=== PATIENT | male | born 1965 | race African-American/Black ===

== ENCOUNTER 2019-09-27 15:17 | Inpatient (IN) | payer MEDICAID, SELFPAY ==
[~2019-09-27] VITALS: Ht 170.2 cm; Wt 114.3 kg
--- NOTE | 2019-09-27 15:21 | NUR ---
PT PLACED IN BED 11 BY EMS.
[2019-09-27 15:57] VITALS: BP 113/77
--- NOTE | 2019-09-27 15:57 | NUR ---
54 Y/O M BETH FROM [facility] [place]. PER FACILITY PT SENT TO ER DUE TO SEIZURE ACTIVITY. PER EMS 5 OF [place] GIVEN IN THE FIELD. GLUCOGON GIVEN DUE TO LOW BS OF 53 IN FIELD. ON ARRIVAL PT RESPONSIVE TO PAINFUL STIMULI. BS 126. VSS. PT PLACED IN BED WITH SZ PRECAUTIONS. ALLERGIES,HX,RX -- SEE CHART.
[2019-09-27 16:33] LABS: BASOPHILS % (AUTO) 0.4 % (0.0-2.0); EOSINOPHILS # (AUTO) 0.1 K/uL (0-0.4); EOSINOPHILS % (AUTO) 2.7 % (0.0-4.0); HEMATOCRIT 37.2 % (36-52); HEMOGLOBIN 11.9 g/dL (12.0-18.0); LYMPHOCYTES # (AUTO) 1.1 K/uL (2.0-11.5); LYMPHOCYTES % (AUTO) 44.4 % (20.5-51.1); MEAN CORPUSCULAR HEMOGLOBIN 31 pg (27-31); MEAN CORPUSCULAR HGB CONC 32 g/dL (33-37); MEAN CORPUSCULAR VOLUME 97.7 fL (80-94); MONOCYTES # (AUTO) 0.1 K/uL (0.8-1.0); MONOCYTES % (AUTO) 4.7 % (1.7-9.3); NEUTROPHILS # (AUTO) 1.2 K/uL (1.8-7.7); NEUTROPHILS % (AUTO) 47.8 % (42.2-75.2); PLATELET COUNT (AUTO) 105 K/uL (140-450); RED BLOOD CELL COUNT(AUTO) 3.81 MIL/uL (4.20-6.10); RED CELL DISTRIBUTION WIDTH 19.3 % (11.6-13.7); WHITE BLOOD COUNT (AUTO) 2.4 K/uL (4.8-10.8)
[2019-09-27] MEDS ORDERED: LACT1CAP8 GT (16:45)
[2019-09-27] MEDS ORDERED: NUTR887L9 GT (16:45)
[2019-09-27] MEDS ORDERED: ATRN INH (16:45)
[2019-09-27] MEDS ORDERED: DOCU-299 GT (16:45)
[2019-09-27] MEDS ORDERED: ASCO500T95 GT (16:45)
[2019-09-27] MEDS ORDERED: ESOM40EC TD (16:45)
[2019-09-27] MEDS ORDERED: FLOV250 INH (16:45)
[2019-09-27] MEDS ORDERED: ATI2I IM (16:45)
[2019-09-27] MEDS ORDERED: LAM200 GT (16:45)
[2019-09-27] MEDS ORDERED: ACET-2619 GT (16:45)
[2019-09-27] MEDS ORDERED: FER300L GT (16:45)
[2019-09-27] MEDS ORDERED: PRON INH (16:45)
[2019-09-27] MEDS ORDERED: CALC1TAB GT (16:45)
[2019-09-27] MEDS ORDERED: [UNRECOGNIZED DRUG - CODE] OP (16:46)
[2019-09-27 16:48] LABS: APPEARANCE,URINE CLEAR (CLEAR); BILIRUBIN,URINE NEGATIVE (NEGATIVE); BLOOD, URINE NEGATIVE (NEGATIVE); COLOR,URINE YELLOW (YELLOW); LEUKOCYTE ESTERASE ,URINE NEGATIVE (NEGATIVE); NITRITE, URINE NEGATIVE (NEGATIVE); UGLUCOSE NEGATIVE (NEGATIVE)
--- NOTE | 2019-09-27 16:53 | NUR ---
PT RESTING IN BED, SIDE RAIL X2. SZ PRECAUTIONS IN PLACE.
[2019-09-27 17:01] LABS: ALBUMIN 2.5 g/dL (3.4-5.0); ANION GAP 8.9 (8-16); CARBON DIOXIDE 31.8 mmol/L (21-32); CREATININE 1.1 mg/dL (0.6-1.3); POTASSIUM 3.7 mmol/L (3.5-5.1); PROTHROMBIN TIME 9.5 secs (10.8-13.4); TOTAL BILIRUBIN 0.2 mg/dL (0.0-1.0)
[2019-09-27 17:16] LABS: C-REACTIVE PROTEIN QUANT 2.6 mg/dL (0.0-0.9)
[2019-09-27 17:18] LABS: LACTATE DEHYDROGENASE 128 U/L (85-227)
--- NOTE | 2019-09-27 17:21 | NUR ---
COVID / FLU / RSV COMPLETED AND GIVEN TO LAB
[2019-09-27] MEDS ORDERED: AZITHROMYCIN 500 MG in DEXTROSE 5% 250 ML IV ONE (17:45)
[2019-09-27 18:06] LABS: RSV NEGATIVE (NEGATIVE)
[2019-09-27] MEDS ORDERED: AZITHROMYCIN 500 MG INJ VIAL IV ONE (18:21)
--- NOTE | 2019-09-27 18:31 | NUR ---
PT RESTING IN BED, SZ PRECAUTIONS IN PLACE. SIDE RAIL X2.
[2019-09-27] MEDS ORDERED: DOCUSATE SODIUM 100 MG GELCAP PO PRN (18:55)
[2019-09-27] MEDS ORDERED: ONDANSETRON 4 MG/2 ML VIAL IM/IVP PRN (18:55)
[2019-09-27] MEDS ORDERED: HYDROcodone/APAP 5/325 MG 1 TAB TAB PO PRN (18:55)
[2019-09-27] MEDS ORDERED: ACETAMINOPHEN 325 MG TAB PO PRN (18:55)
--- NOTE | 2019-09-27 19:11 | NUR ---
REPORT GIVEN TO MP FOREMAN FOR CONTINUITY OF CARE
--- NOTE | 2019-09-27 19:15 | NUR ---
recvied report from pilar levine. will cont care at this time.
[2019-09-27] MEDS ORDERED: LORazepam 2 MG/ML VIAL IVP PRN (19:30)
[2019-09-27] MEDS ORDERED: GLUCAGON 1 MG VIAL IVP PRN (19:40)
[2019-09-27] MEDS ORDERED: INSULIN LISPRO SLIDING SCALE 100 UNITS/ML VIAL SUBQ PRN (19:40)
[2019-09-27] MEDS: ASCORBIC ACID 500 MG TAB GT SCH (19:40)
[2019-09-27] MEDS: ZINC SULF 220 MG CAP GT SCH (19:40)
[2019-09-27] MEDS ORDERED: DEXTROSE 50% 50 ML SYR IVP PRN (19:40)
[2019-09-27] MEDS ORDERED: PHENobarbital 65 MG/ML VIAL IV SCH (19:45)
[2019-09-27] MEDS ORDERED: PHENobarbital 65 MG/ML VIAL IV PRN ×2 (19:45→23:12)
[2019-09-27 19:53] LABS: CHOL/HDL RATIO 6.6 (1-4.5); FREE T4 (FREE THYROXINE) 0.95 ng/dL (0.76-1.46)
--- NOTE | 2019-09-27 19:59 | NUR ---
GAVE FAMILY UPDATE ON PT. SPOKE TO ANNA (PARENTS): HOME PHONE # [phone]. CELL # [phone] (CHIO)
[2019-09-27 20:04] LABS: BARBITURATE, URINE NEGATIVE ng/ml (NEG <=200); BENZODIAZEPINE, URINE POSITIVE ng/mL (NEG <=200); CANNABINOID, URINE NEGATIVE ng/mL (NEG <=50); COCAINE, URINE NEGATIVE ng/mL (NEG <=300); OPIATE, URINE NEGATIVE ng/mL (NEG <=2000); PHENCYCLIDINE SCREEN,URINE NEGATIVE ng/mL (NEG <=25)
[2019-09-27 20:18] LABS: THYROID STIMULATING HORMONE 0.98 uIU/mL (0.34-3.74)
[2019-09-27] MEDS: BLOOD GLUCOSE MONITORING 1 DEV DEV FS SCH (21:00)
--- NOTE | 2019-09-27 22:00 | NUR ---
PT IS SLEEPING COMFROTABLY. NO DISTRESS NOTED. VSS.
--- NOTE | 2019-09-27 23:50 | NUR ---
Patient will be admitted to care of DR. BLOUNT. Admited to TELE. Will go to room 119A. Belongings list completed. Report to KELLEN KABA.
--- NOTE | 2019-09-28 | NUR ---
PT ARRIVED VIA GURNEY AND WAS TRANSFERRED TO 119 BED A. PT IS AOX1 PUPILS VERY SLUGGISH PT RESPONDS TO NAME, LIGHT SHAKING AND LIGHT PAIN. HE IS APHASAIC. PT IS BEDBOUND AND TOTAL CARE DUE TO SPINAL INJURY ACCORDING TO MOTHER. ALL ORDERED PRECAUTIONS IN PLACE.
--- NOTE | 2019-09-28 00:30 | NUR ---
PT WAS TURNED, CHANGED AND REPOSITIONED, SKIN INTACT V/S FOLLOWS: T 97.0 P 64 R 18 B/P 126/76 02 100% OF 10 LITERS REBREATHER MASK.
[2019-09-28] MEDS: DEXAMETHASONE 10 MG/ML VIAL IVP SCH (01:32)
[2019-09-28] MEDS: ENOXAPARIN 40 MG/0.4 ML SYR SUBQ SCH ×2 (01:46→21:26)
--- NOTE | 2019-09-28 02:45 | NUR ---
PT SEEN AND ASSESSED. PLACED PT ON 6L OXYMIZER WITH SPO2 OF 98%. PT IS IN NO APPARENT RESPIRATORY DISTRESS AT THIS TIME.
--- NOTE | 2019-09-28 04:00 | NUR ---
PT WAS TURNED, CHANGED AND REPOSITIONED IN BED. PT REMAINS ON 6 LITERS OXYMIZER NO S/S OF PAIN OR DISTRESS NOTED. ALL ORDERED PRECAUTIONS IN PLACE.
--- NOTE | 2019-09-28 06:00 | NUR ---
FINGERSTICK IS 78 NO HUMALOG COVERAGE NEEDED.
[2019-09-28 07:05] LABS: BASOPHILS % (AUTO) 0.5 % (0.0-2.0); EOSINOPHILS % (AUTO) 0.3 % (0.0-4.0); HEMATOCRIT 39.2 % (36-52); HEMOGLOBIN 12.8 g/dL (12.0-18.0); LYMPHOCYTES # (AUTO) 1.3 K/uL (2.0-11.5); LYMPHOCYTES % (AUTO) 24.2 % (20.5-51.1); MEAN CORPUSCULAR HEMOGLOBIN 32 pg (27-31); MEAN CORPUSCULAR HGB CONC 33 g/dL (33-37); MEAN CORPUSCULAR VOLUME 98.2 fL (80-94); MONOCYTES # (AUTO) 0.1 K/uL (0.8-1.0); MONOCYTES % (AUTO) 2.1 % (1.7-9.3); NEUTROPHILS # (AUTO) 3.8 K/uL (1.8-7.7); NEUTROPHILS % (AUTO) 72.9 % (42.2-75.2); PLATELET COUNT (AUTO) 117 K/uL (140-450); RED BLOOD CELL COUNT(AUTO) 3.99 MIL/uL (4.20-6.10); RED CELL DISTRIBUTION WIDTH 19.1 % (11.6-13.7); WHITE BLOOD COUNT (AUTO) 5.2 K/uL (4.8-10.8)
[2019-09-28] MEDS: BLOOD GLUCOSE MONITORING 1 DEV DEV FS SCH ×4 (07:30→21:50)
[2019-09-28] MEDS ORDERED: PHENobarbital 130 MG/ML VIAL IV PRN (07:32)
[2019-09-28 07:51] LABS: ALBUMIN 2.7 g/dL (3.4-5.0); ANION GAP 11.7 (8-16); CARBON DIOXIDE 30.3 mmol/L (21-32); MAGNESIUM 2.1 mg/dL (1.8-2.4); TOTAL BILIRUBIN 0.3 mg/dL (0.0-1.0)
[2019-09-28 08:00] VITALS: BP 128/78
--- NOTE | 2019-09-28 08:35 | NUR ---
DR BLOUNT AND MEDICAL TEAM AT BEDSIDE, NOTIFIED OF BLOOD SUGAR 95 NOW, AND HYPOGLUCEMIA LAST NIGHT PER REPORT, NO ORDER FOR IVF AND PT IS NPO, DR HERNADEZ TO REVIEW ORDERS.
--- NOTE | 2019-09-28 08:50 | NUR ---
ALL GT MEDS ON HOLD PER ORDER, AWAITING GI CONSULT, DR HERNADEZ NOTIFIED THAT PT'S FEEDING ON HOLD, NO IVF ORDERED, AND LOW BLOOD SUGAR REPORTED FROM STONE SETTER. DR HERNADEZ TO REVIEW ORDERS.
[2019-09-28] MEDS: PANTOPRAZOLE 40 MG INJ VIAL IVP SCH (08:53)
[2019-09-28] MEDS: ZINC SULF 220 MG CAP GT SCH (08:54)
[2019-09-28] MEDS: ASCORBIC ACID 500 MG TAB GT SCH (08:54)
[2019-09-28] MEDS ORDERED: ALBUTEROL SULFATE/IPRATROPIU 3 ML SOL IH PRN (09:15)
[2019-09-28] MEDS ORDERED: ALBUTEROL HFA MDI 90 MCG/ACTUATION 8 GM INH PRN (09:15)
[2019-09-28] MEDS ORDERED: GLYCERIN OP SCH (09:20)
[2019-09-28] MEDS ORDERED: HYPROMELLOSE OP SCH (09:20)
[2019-09-28] MEDS ORDERED: PEG OP SCH (09:20)
--- NOTE | 2019-09-28 09:27 | NUR ---
PATIENT HAS BEEN SCREENED AND CATEGORIZED HIGH NUTRITION RISK. PATIENT WILL BE SEEN WITHIN 1-2 DAYS OF ADMISSION. 09/28/19-09/29/[address]
[2019-09-28] MEDS ORDERED: POLYVINYL ALCOHOL 1.4% OP 15 ML SOL OP PRN (09:30)
--- NOTE | 2019-09-28 10:03 | NUR ---
BEDBATH PRRICARE DONE WITH JULIO CAMERON
--- NOTE | 2019-09-28 11:30 | NUR ---
DR SULTANA AT BEDSIDE, GT FLUSHED, CLEANED WITH BRUSH, FLUSHES WITH EASE NOW, OK TO USE PER DR SULTANA.
[2019-09-28 12:00] VITALS: BP 138/70
[2019-09-28] MEDS ORDERED: ALBUTEROL HFA MDI 90 MCG/ACTUATION 8 GM INH SCH (12:00)
[2019-09-28] MEDS ORDERED: CRUSHER, PILL MC ONE (12:29)
[2019-09-28] MEDS ORDERED: NON-FORMULARY ITEM (Amino Acids/Protein Hydrolys (Pro-Stat Sugar Free Liquid) 30 ML) GT SCH (13:00)
--- NOTE | 2019-09-28 13:01 | NUR ---
PT'S MOTHER CHIO CALLED TO UPDATE HER THAT GT NOW IS WORKING AND OK TO USE PER DR SULTANA.
--- NOTE | 2019-09-28 14:39 | NUR ---
09/28/19 RD INITIAL ASSESSMENT COMPLETED PLEASE REFER TO NUTRITION ASSESSMENT UNDER CARE ACTIVITY FOR ESTIMATED NUTRITIONAL NEEDS. 1. RECOMMEND JEVITY 1.2 @ 70 ML/HR X 24 HR -THIS WILL PROVIDE 2016 CALORIES AND 93 GRAMS OF PROTEIN WHICH MEETS 100% OF ESTIMATED NUTRIENT NEEDS 2. RECOMMEND FREE WATER FLUSH OF 125 ML Q4H 3. CONTINUE VITAMIN C AND ZINC 4. RD TO FOLLOW-UP 2-3 DAYS, HIGH RISK UMESH BERMUDEZ RD
--- NOTE | 2019-09-28 15:20 | NUR ---
PER SPEECH THERAPIST, NOT APPROPRIATE FOR SWALLOW EVAL, PT SHOULD RESUME GT FEED. DR HERNADEZ NOTIFIED
--- NOTE | 2019-09-28 15:40 | NUR ---
DC PLANNIN YRS OLD MALE PATIENT WAS ADMITTED FROM [facility] WITH A DX OF BREAK THROUGH SEIZURE , G-TUBE FAILURE. PT HAS A HX OF EPILEPSY, ANOXIC BRAIN INJURY, NON-VERBAL AND BED BOUND AT BASELINE, FUNCTIONAL QUADRIPLEGIA, HEART FAILURE AND HTN. CT HEAD SHOWED OLD INFRACTS ,MILD SINUS DISEASE. CXR SHOWED MILD CARDIOMEGALY WITH PULMONARY VASCULAR CONGESTION. STATED ON ROCEPHIN IV AND AZITHROMYCIN IV ABX. COVID TEST, URINE, SPUTUM AND BLOOD CULTURE PENDING.CONSULTED WITH GI DR SULTANA , NEUROLOGIST DR SPICER AND ADULT CARE MANAGER . DC PLAN TO GO BACK TO [facility] WHEN STABLE CM TO FOLLOW. Addendum: 09/29/19 at 1510 by Chely Castro DC PLANNINST COVID TEST NEGATIVE 2ND TEST PENDING. SEEN BY DR SPICER NEUROLOGIST CONTINUE LAMICTAL ONCE SEIZURE FREE FOR 24 HRS OK TO DC. CONTINUE WITH CURRENT THERAPY. DC PLAN TO GO BACK TO [facility] TOMORROW. CM TO FOLLOW Addendum: 09/30/19 at 1024 by Piper Castro CM FAXED PATIENTS CLINICALS TO [facility]. WILL FOLLOW UP Addendum: 09/30/19 at 1148 by Piper Castro CM SPOKE WITH [facility] IN ADMISSIONS PATIENT WILL BE ACCEPTED BACK SHE WILL CONTACT ME SHORTLY WITH A BED NUMBER. Addendum: 09/30/19 at 1157 by Piper Castro CM [facility] PROVIDED ROOM 105 A FOR PATIENT WILL SET UP TRANSPORTATION Addendum: 09/30/19 at 1206 by Piper Castro CM [facility] PROVIDED 3:30 CHERRY PICKER OPERATOR TIME FOR PATIENT. NOTIFIED KELLEN WOODARD AND [facility]. Addendum: 09/30/19 at 1209 by Piper Castro CM NOTIFIED PATIENTS MOTHER THAT PATIENT WILL BE D/C TODAY BACK TO [facility]
[2019-09-28 16:00] VITALS: BP 140/78
--- NOTE | 2019-09-28 16:11 | NUR ---
ST NOTE Pt NOT APPROPRIATE FOR SWALLOW EVAL AND PO DIET D/T LONG STANDING PLOF IS PEG. ST DISCUSSED WITH MARY FOREMAN. RN WILL COMMUNICATE WITH . GAUTAM SOLER MS, CCC-PRESSURE TESTER OPERATOR
[2019-09-28] MEDS: AZITHROMYCIN 250 MG in DEXTROSE 5% 250 ML IV SCH (17:43)
--- NOTE | 2019-09-28 17:50 | NUR ---
PT REPOSITIONED FOR COMFORT, PT APPEARS COMFORTABLE IN NO ACUTE DISTRESS, RESP EVEN UNLABORED.
[2019-09-28] MEDS ORDERED: CLONIDINE HYDROCHLORIDE 0.1 MG TAB PO PRN (19:05)
[2019-09-28 20:00] VITALS: BP 110/59
--- NOTE | 2019-09-28 20:05 | NUR ---
RECE[facility]. PT AWAKE, OPENS EYES SPONTANEOUSLY, DOES NOT TRACK. PERRL 4MM, BRISK. DOES NOT FOLLOW COMMANDS OR MAKE NEEDS KNOWN. SLIGHTLY CONTRACTED AT UPPER EXTREMITIES. PT WILL GROAN/MOAN WITH LIGHT PAIN, INCOMPREHENSIBLE. S1S2, SR ON MONITOR. ALL OTHER VITALS WITHIN RANGE. OXYMIZER IN PLACE WITH 4L, PATIENT SATURATIONS 99%. BREATHING IS EVEN AND UNLABORED, LUNG SOUNDS CLEAR. SLIGHT COUGH NOTED, NONPRODUCTIVE. ABDOMEN SOFT AND NONTENDER, BOWEL SOUNDS HYPOACTIVE IN ALL QUADRANTS. GTUBE IN PLACE, FLUSHED, PATENT. CLAMPED. LEFT ARM 22G, FLUSHED AND PATENT. PATIENT IS INCONTINENT. SEIZURE PRECAUTIONS IN PLACE. BILATERAL MITTENS IN PLACE. SKIN AND CIRCULATION ASSESSED AND WITHIN RANGE. HOB 30 DEGREES, SIDERAILS UP, BED LOCKED AND IN LOWEST POSITION. DROPLET PRECAUTIONS IN PLACE. WILL CONTINUE TO MONITOR.
[2019-09-28] MEDS ORDERED: FLUTICASONE PROPIONATE 44 MCG INH SCH (21:00)
[2019-09-28] MEDS ORDERED: CALCIUM CARBONATE GT SCH (21:00)
[2019-09-28] MEDS ORDERED: VITAMIN D3 GT SCH (21:00)
[2019-09-28] MEDS: DOCUSATE 100 MG/10 ML UDC GT SCH (21:28)
[2019-09-28] MEDS: CALCIUM CARB/VIT-D 500 MG/200 IU 1 TAB GT SCH (21:28)
[2019-09-28] MEDS: ATORVASTATIN 20 MG TAB GT SCH (21:28)
--- NOTE | 2019-09-28 21:30 | NUR ---
ALL SCHEDULED MEDICATIONS GIVEN. BLOOD SUGAR 85, NO COVERAGE NEEDED. STILL PENDING TUBE FEEDING ORDER. WITH 2 AERONAUTICAL INSPECTOR's. TURNED AND POSITIONED PATIENT, PATIENT INCONTINENT, VOIDED. PROVIDED SKIN CARE AND REPOSITIONED FOR OFFLOADED PRESSURE SITES. SKIN INTACT. MITTENS REMOVED, ASSESSED SKIN, NO INJURIES NOTED. WILL CONTINUE TO MONITOR.
--- NOTE | 2019-09-28 22:30 | NUR ---
NEW TUBE FEEDING ORDER, ASPIRATED AT GTUBE, LESS THAN 5ML GASTRIC RESIDUALS. GTUBE PATENT, FLUSHED 10 ML STERILE WATER. STARTE DNEW TUBE FEEDING, GLUCERNA 1.2 AT 10ML, WILL MONITOR RESIDUALS AND IF TOLERATING, WILL INCREASE BY 10 TO REACH GOAL RATE OF 40ML/HR. FWF 200ML Q4H. HOB 30 DEGREES.
[2019-09-29] VITALS: BP 107/63
[2019-09-29] MEDS: DEXAMETHASONE 10 MG/ML VIAL IVP SCH (01:22)
[2019-09-29 04:00] VITALS: BP 120/58
[2019-09-29] MEDS: BLOOD GLUCOSE MONITORING 1 DEV DEV FS SCH ×4 (06:49→21:00)
--- NOTE | 2019-09-29 07:20 | NUR ---
RECEIVED BEDSIDE SHIFT REPORT FROM ANALYTICS CONSULTANT NURSE FOR CONTINUATION OF CARE.
[2019-09-29] MEDS ORDERED: SODIUM POLYSTYRENE 15 GM/60 ML UDBTL PO SCH (07:55)
[2019-09-29 08:00] VITALS: BP 105/53
[2019-09-29 08:26] LABS: BASOPHILS % (AUTO) 0.2 % (0.0-2.0); EOSINOPHILS % (AUTO) 0.2 % (0.0-4.0); HEMATOCRIT 38.4 % (36-52); HEMOGLOBIN 12.5 g/dL (12.0-18.0); LYMPHOCYTES # (AUTO) 0.8 K/uL (2.0-11.5); MEAN CORPUSCULAR HEMOGLOBIN 32 pg (27-31); MEAN CORPUSCULAR HGB CONC 33 g/dL (33-37); MEAN CORPUSCULAR VOLUME 97.4 fL (80-94); MONOCYTES # (AUTO) 0.2 K/uL (0.8-1.0); MONOCYTES % (AUTO) 3.5 % (1.7-9.3); NEUTROPHILS # (AUTO) 5.3 K/uL (1.8-7.7); NEUTROPHILS % (AUTO) 83.1 % (42.2-75.2); PLATELET COUNT (AUTO) 130 K/uL (140-450); RED BLOOD CELL COUNT(AUTO) 3.95 MIL/uL (4.20-6.10); RED CELL DISTRIBUTION WIDTH 19.1 % (11.6-13.7); WHITE BLOOD COUNT (AUTO) 6.4 K/uL (4.8-10.8)
[2019-09-29 08:30] LABS: ANION GAP 7.6 (8-16); CARBON DIOXIDE 33.3 mmol/L (21-32); CREATININE 1.3 mg/dL (0.6-1.3); POTASSIUM 4.9 mmol/L (3.5-5.1)
[2019-09-29] MEDS ORDERED: LACTOBACILLUS ACIDOPHILUS GT SCH (09:00)
[2019-09-29] MEDS ORDERED: [UNRECOGNIZED DRUG - OTHER] GT SCH (09:00)
--- NOTE | 2019-09-29 09:30 | NUR ---
MEDICATIONS ADMINISTERED, FLUSHED GTUBE, TOLERATED GTUBE FEEDING AND MED PASS. FEEDING BUMPED TO 30 ML/HR. NO SIGNS OF DISTRESS NOTED. CHEST RISE AND FALL OBSERVED. WILL CONTINUE TO MONITOR.
[2019-09-29] MEDS: DOCUSATE 100 MG/10 ML UDC GT SCH ×2 (09:38→21:47)
[2019-09-29] MEDS: NACL 0.9% 1,000 ML IV SCH ×2 (09:38→20:35)
[2019-09-29] MEDS: FERROUS SULFATE 300 MG/5 ML UDC GT SCH (09:39)
[2019-09-29] MEDS: CALCIUM CARB/VIT-D 500 MG/200 IU 1 TAB GT SCH ×2 (09:39→21:47)
[2019-09-29] MEDS: ASCORBIC ACID 500 MG TAB GT SCH (09:39)
[2019-09-29] MEDS: ZINC SULF 220 MG CAP GT SCH (09:39)
[2019-09-29] MEDS: LACTOBACILLUS RHAMNOSUS GG 1 EACH CAP PO SCH (09:40)
[2019-09-29] MEDS: PANTOPRAZOLE 40 MG INJ VIAL IVP SCH (09:40)
--- NOTE | 2019-09-29 11:00 | NUR ---
RESTING IN BED, LINENS CHANGED, CALL LIGHT ON AND WITHIN REACH. WILL CONTINUE TO MONITOR.
[2019-09-29 12:00] VITALS: BP 111/52
--- NOTE | 2019-09-29 13:00 | NUR ---
IV ANTIBIOTICS ADMINISTERED. IV FLUID CHANGED. FLUSHED GTUBE, TOLERATED WELL. WILL CONTINUE TO MONITOR.
[2019-09-29 16:00] VITALS: BP 123/52
--- NOTE | 2019-09-29 16:00 | NUR ---
OBSERVED CHEST RISE AND FALL, CALL LIGHT ON AND WITHIN REACH. WILL CONTINUE TO MONITOR.
[2019-09-29] MEDS: AZITHROMYCIN 250 MG in DEXTROSE 5% 250 ML IV SCH (18:42)
--- NOTE | 2019-09-29 19:26 | NUR ---
BEDSIDE SHIFT REPORT GIVEN TO BLANKET WINDER HELPER NURSE FOR CONTINUATION OF CARE.
--- NOTE | 2019-09-29 19:27 | NUR ---
RECEIVED REPORT FROM DAY SHIFT NURSE FOR CONTINUITY OF CARE. PT IS AXO X1, APHASIC. R/O COVID-19, 1ST TEST NEGATIVE; DROPLET PRECAUTIONS IN PLACE. RESPIRATIONS ARE EVEN AND UNLABORED, BREATHING TO 4LPM NC. SKIN COLOR APPROPRIATE FOR ETHNICITY. L UPPER ARM 22G IV IS PATENT AND INTACT, AND RUNNING TKO. TUBE FEED, FEEDING RUNNING ORDERED. FALL RISK, FALL PRECAUTIONS IN PLACE. REVIEWED POC WITH PT, PT UNABLE TO COMPREHEND. SAFETY MEASURES IN PLACE; CALL LIGHT WITHIN REACH, BED IN LOW POSITION. WILL CONTINUE TO MONITOR.
[2019-09-29 20:00] VITALS: BP 132/80
--- NOTE | 2019-09-29 21:04 | NUR ---
BGL CHECKED; BGL: 101. NO COVERAGE NEEDED.
--- NOTE | 2019-09-29 21:15 | NUR ---
SPOKE WITH PT'S MOTHER VIA TELEPHONE AND PROVIDED HER WITH AN UPDATE ON PT'S CONDITION. PT'S MOTHER STATED THAT SHE WILL CALL BACK IF SHE HAS ANY OTHER QUESTIONS.
[2019-09-29] MEDS: ATORVASTATIN 20 MG TAB GT SCH (21:46)
--- NOTE | 2019-09-29 21:47 | NUR ---
G-TUBE ASPIRATED; 5 ML RESIDUAL NOTED. SCHEDULED MEDICATIONS ADMINISTERED VIA G-TUBE. G-TUBE FLUSHED BEFORE AND AFTER MEDICATION ADMINISTRATION. G-TUBE FEEDING RESTARTED, AND RUNNING ORDERED. IVF RUNNING ORDERED. NO DISTRESS NOTED. SAFETY MEASURES IN PLACE. TELE MONITOR ATTACHED. WILL CONTINUE TO MONITOR.
[2019-09-29] MEDS: ENOXAPARIN 40 MG/0.4 ML SYR SUBQ SCH (21:49)
[2019-09-30] VITALS: BP 116/75
[2019-09-30] MEDS: DEXAMETHASONE 10 MG/ML VIAL IVP SCH (01:35)
--- NOTE | 2019-09-30 01:35 | NUR ---
SCHEDULED IVP MEDICATION ADMINISTERED. PT IS LYING IN BED, AWAKE. NO DISTRESS NOTED. FEEDING IS RUNNING ORDERED. SAFETY MEASURES IN PLACE. TELE MONITOR ATTACHED. WILL CONTINUE TO MONITOR.
--- NOTE | 2019-09-30 03:45 | NUR ---
TUBE FEEDING CHANGED, AND RUNNING PER ORDERS. NO DISTRESS NOTED. SAFETY MEASURES IN PLACE; BED IN LOW POSITION, CALL LIGHT WITHIN REACH. WILL CONTINUE TO MONITOR.
[2019-09-30 04:00] VITALS: BP 118/73
--- NOTE | 2019-09-30 06:40 | NUR ---
BLOOD SUGAR CHECKED; BGL: 111. NO INSULIN COVERAGE NEEDED. NO DISTRESS NOTED. SAFETY MEASURES IN PLACE. TELE MONITOR ATTACHED. WILL CONTINUE TO MONITOR.
--- NOTE | 2019-09-30 07:20 | NUR ---
RECEIVED REPORT FROM CREDIT VERIFIER RNBRIANNA, FOR CONTINUITY OF CARE. PT IS AOX1, APHASIC. RESPIRATIONS ARE EVEN AND UNLABORED, BREATHING 3LPM O2 OXIMIZER. SKIN COLOR APPROPRIATE FOR ETHNICITY. L UPPER ARM 22G IV IS PATENT AND INTACT, AND RUNNING TKO. TUBE FEED, FEEDING RUNNING ORDERED. FALL RISK, FALL PRECAUTIONS AND SEIZURE PRECAUTIONS IN PLACE. REVIEWED POC WITH PT, PT UNABLE TO COMPREHEND. SAFETY MEASURES IN PLACE; CALL LIGHT WITHIN REACH, BED IN LOW POSITION. WILL CONTINUE TO MONITOR.
--- NOTE | 2019-09-30 07:26 | NUR ---
ENDORSED TO JOINER NURSE, FOR CONTINUITY OF CARE. PT IS IN STABLE CONDITION.
[2019-09-30 07:35] LABS: ANION GAP 9.3 (8-16); BASOPHILS % (AUTO) 0.2 % (0.0-2.0); CARBON DIOXIDE 32.2 mmol/L (21-32); CREATININE 1.4 mg/dL (0.6-1.3); EOSINOPHILS % (AUTO) 0.1 % (0.0-4.0); HEMATOCRIT 36.7 % (36-52); MEAN CORPUSCULAR HEMOGLOBIN 32 pg (27-31); MEAN CORPUSCULAR HGB CONC 33 g/dL (33-37); MEAN CORPUSCULAR VOLUME 98.2 fL (80-94); MONOCYTES # (AUTO) 0.2 K/uL (0.8-1.0); MONOCYTES % (AUTO) 3.3 % (1.7-9.3); NEUTROPHILS # (AUTO) 5.5 K/uL (1.8-7.7); NEUTROPHILS % (AUTO) 81.4 % (42.2-75.2); POTASSIUM 4.5 mmol/L (3.5-5.1); RED BLOOD CELL COUNT(AUTO) 3.73 MIL/uL (4.20-6.10); RED CELL DISTRIBUTION WIDTH 19.1 % (11.6-13.7); WHITE BLOOD COUNT (AUTO) 6.7 K/uL (4.8-10.8)
[2019-09-30 08:00] VITALS: BP 131/73
[2019-09-30] MEDS: BLOOD GLUCOSE MONITORING 1 DEV DEV FS SCH ×2 (08:27→12:03)
[2019-09-30] MEDS: DOCUSATE 100 MG/10 ML UDC GT SCH (08:27)
[2019-09-30] MEDS: LACTOBACILLUS RHAMNOSUS GG 1 EACH CAP PO SCH (08:28)
[2019-09-30] MEDS: CALCIUM CARB/VIT-D 500 MG/200 IU 1 TAB GT SCH (08:28)
[2019-09-30] MEDS: FERROUS SULFATE 300 MG/5 ML UDC GT SCH (08:28)
[2019-09-30] MEDS: PANTOPRAZOLE 40 MG INJ VIAL IVP SCH (08:30)
[2019-09-30] MEDS: NACL 0.9% 1,000 ML IV SCH (08:40)
[2019-09-30 08:48] LABS: PLATELET COUNT (AUTO) 113 K/uL (140-450)
--- NOTE | 2019-09-30 11:16 | NUR ---
SENIOR CHEMIST NOTE: Patient's Orientation Unable To Assess Information Provided By [facility] Development And Housing Director, Realtionship and Phone Number CHIO LARKIN [phone] Healthcare Power of Assembler Surgical Garment No Does Patient Have a POLST No Identifying Problems No Social Work Triggers Is A Social Work Consult Needed No Mandate Report Filed No Explanation Of Identifying Problems PATIENT IS A 54-YEAR-OLD MALE ADMITTED FOR BREAK THROUGH SEIZURE. PATIENT HAS PMHX OF EPILEPSY, HTN, GERD, ANOXIC BRAIN INJURY, AND FUNCTIONAL QUADRIPLEDGIA. [facility] - [phone] Pre-Admission Level Of Functioning Status Total Care Prior DME Hospital Bed Financial Issues No Known Financial Issue Factors/Needs SNF/NH Placement Explanation And Or Other Factors Affecting/Possible DC Needs PATIENT IS ASSISTED AND ON A BED HOLD. Discharge Plan Comments TENTATIVE DISCHARGE PLAN IS FOR PATIENT TO RETURN TO [facility]. DC Plan Status Initiated
[2019-09-30 12:00] VITALS: BP 115/67
--- NOTE | 2019-09-30 12:46 | NUR ---
GAVE REPORT TO [facility] RN, KYLAH, FOR CONTINUITY OF CARE. KYLAH VERBALIZES UNDERSTANDING ON REPORT. WILL CONTINUE TO MONITOR.
--- NOTE | 2019-09-30 12:50 | NUR ---
ATTEMPTED TO CALL PT'S FAMILY, CHIO, TO REPORT PENDING TRANSFER OF PT. BACK TO [facility]. CALL WAS NOT ANSWERED. WILL REATTEMPT.
[2019-09-30 12:51] VITALS: BP 115/67
--- NOTE | 2019-09-30 13:49 | NUR ---
PT. ADMITTED WITH LOW DHARMESH SCALE AT RISK, CONTINUE TO FOLLOW PRESSURE ULCER PREVENTION INTERVENTIONS. -TURN AND REPOSITION PATIENT Q 2H -ASSESS AND MONITOR SKIN CONDITION DURING POSITION CHANGE -OFFLOAD BILATERAL HEELS BY PLACING PILLOWS UNDER CALVES AT ALL TIMES, UNLESS OTHERWISE CONTRAINDICATED -PRESSURE REDISTRIBUTION BY PLACING PILLOWS AND OFFLOADING SACRALCOCCYX -KEEP SKIN CLEAN AND DRY AT ALL TIMES.
--- NOTE | 2019-09-30 13:55 | NUR ---
PT'S MOTHER, CHIO, CALLED BACK. INFORMED ABOUT TRANSFER TO SNF. VERBALIZES UNDERSTANDING. DISCHARGE TEACHINGS AND UPDATE ON PT'S CONDITION GIVEN. WILL CONTINUE TO MONITOR.
--- NOTE | 2019-09-30 14:00 | NUR ---
DISCHARGE TEACHINGS GIVEN, REINFORCEMENT NEEDED. IV SITE REMOVED AND G-TUBE FEEDING DISCONNECTED. WILL CONTINUE TO MONITOR.
--- NOTE | 2019-09-30 15:55 | NUR ---
PT. TRANSFERED BACK TO [facility] BY [facility] TRANSPORT VIA GURNEY. PT. UNABLE TO SIGN DISCHARGE PAPERWORKS. DISCHARGE TEACHINGS GIVEN. REPORT GIVEN TO RN IN [facility] AND PT'S FAMILY IS INFORMED OF THE TRANSFER. ALL VERBALIZES UNDERSTANDING.
== END 2019-09-30 15:55 | DRG 252 ==
LOC: MED 15:17 → EEVIPCON 15:17 → MMU 17:55 → MTU 23:30
PROVIDERS: ADMIT General Practice; ATTEND General Practice
DX: K94.23 Gastrostomy malfunction (principal); E43 Unspecified severe protein-calorie malnutrition; G93.41 Metabolic encephalopathy; D61.818 Other pancytopenia; R53.2 Functional quadriplegia; I50.9 Heart failure, unspecified; I11.0 Hypertensive heart disease with heart failure; R13.10 Dysphagia, unspecified; E66.01 Morbid (severe) obesity due to excess calories; G40.909 Epilepsy, unspecified, not intractable, without status epilepticus; Z68.39 Body mass index [BMI] 39.0-39.9, adult; E78.5 Hyperlipidemia, unspecified; E87.5 Hyperkalemia; J44.9 Chronic obstructive pulmonary disease, unspecified; D72.819 Decreased white blood cell count, unspecified; K21.9 Gastro-esophageal reflux disease without esophagitis; Y83.3 Surgical operation with formation of external stoma as the cause of abnormal reaction of the patient, or of later complication, without mention of misadventure at the time of the procedure; E86.0 Dehydration; Z88.8 Allergy status to other drugs, medicaments and biological substances; Z79.899 Other long term (current) drug therapy; Z74.01 Bed confinement status; Z03.818 Encounter for observation for suspected exposure to other biological agents ruled out; Z91.14 Patient's other noncompliance with medication regimen
CPT/HCPCS: 36415; 36600; 70450; 71045; 80048; 80053; 80299; 80305; 81003; 82140; 82150; 82550; 82728; 82803; 82948; 83036; 83605; 83615; 83690; 83735; 83880; 84100; 84439; 84443; 84484; 85025; 85379; 85384; 85610; 85651; 85730; 86140; 87040; 87081; 87086; 87420; 87804; 93005; 96365; 97161-GP; 99285; C9113; J0456; J0696; J1100; J1650; J2560; J7030; J7060; Q0092; U0003-CS